=== PATIENT | male | born 1940 | race Caucasian/White ===

== ENCOUNTER 2018-09-15 06:42 | Emergency (ER) | payer OTHER ==
--- NOTE | 2018-09-15 07:01 | EDPHYS ---
Physician Documentation [facility] Name: Gumaro Marina Age: 77 yrs Sex: Male : 1940 Arrival Date: 09/15/2018 Time: 06:46 Bed 18 Private MD: Jean Paul Scott ED Physician Chong Motlye HPI: 09/15 06:58 This 77 yrs old Male presents to ER via Unassigned with complaints of Rash. kb 06:58 The patient's rash thought to be caused by allergies. The rash is located on the body kb diffusely. The rash can be described as macular, papular. Onset: The symptoms/episode began/occurred 3 day(s) ago. Associated signs and symptoms: Pertinent positives: itching, Pertinent negatives: burning sensation, difficulty breathing, fever, nausea, Pain swelling of lips, swelling of throat, swelling of tongue, vomiting, wheezing. Severity of symptoms: At their worst the symptoms were moderate in the emergency department the symptoms are unchanged. Treatment given at home: Benadryl. The patient has not experienced similar symptoms in the past. The patient has not recently seen a physician. Pt reports he drank oral contrast on Monday and developed an itchy rash over body after that. Has been taking benadryl, but it isn't working. Historical: - Allergies: 06:59 PENICILLINS; bb 06:59 Codeine; bb - Home Meds: 07:18 guanfacine 2 mg Oral tab [Active]; aspirin 81 mg Oral chew [Active]; melatonin 10 mg em Oral tab [Active]; finasteride 5 mg oral tab [Active]; lisinopril 5 mg Oral tab [Active]; - PMHx: 06:59 Hypertension; bb - PSHx: 06:59 Hernia repair; Knee surgery; bb - Immunization history:: Adult Immunizations up to date. - Social history:: Smoking status: Patient/guardian denies using tobacco. - Ebola Screening: : No symptoms or risks identified at this time. ROS: 06:59 Constitutional: Negative for fever, chills, and weight loss, ENT: Negative for injury, kb pain, and discharge, Neck: Negative for injury, pain, and swelling, Cardiovascular: Negative for chest pain, palpitations, and edema, Respiratory: Negative for shortness of breath, cough, wheezing, and pleuritic chest pain, Abdomen/GI: Negative for abdominal pain, nausea, vomiting, diarrhea, and constipation, MS/Extremity: Negative for injury and deformity, Neuro: Negative for headache, weakness, numbness, tingling, and seizure. 06:59 Skin: Positive for rash, diffusely. Exam: 06:59 Constitutional: This is a well developed, well nourished patient who is awake, alert, kb and in no acute distress. Head/Face: Normocephalic, atraumatic. Chest/axilla: Normal chest wall appearance and motion. Nontender with no deformity. No lesions are appreciated. Cardiovascular: Regular rate and rhythm with a normal S1 and S2. No gallops, murmurs, or rubs. Normal PMI, no JVD. No pulse deficits. Respiratory: Lungs have equal breath sounds bilaterally, clear to auscultation and percussion. No rales, rhonchi or wheezes noted. No increased work of breathing, no retractions or nasal flaring. Abdomen/GI: Soft, non-tender, with normal bowel sounds. No distension or tympany. No guarding or rebound. No evidence of tenderness throughout. MS/ Extremity: Pulses equal, no cyanosis. Neurovascular intact. Full, normal range of motion. Neuro: Awake and alert, GCS 15, oriented to person, place, time, and situation. Cranial nerves II-XII grossly intact. Motor strength 5/5 in all extremities. Sensory grossly intact. Cerebellar exam normal. Normal gait. 06:59 Skin: rash a mild rash is noted, rash can be described as macular, papular, and is diffusely located. Vital Signs: 06:59 BP 179 / 102; Pulse 72; Resp 16 S; Temp 97.6(O); Pulse Ox 99% on R/A; Weight 83.91 kg bb (R); Height 6 ft. 0 in. (182.88 cm) (R); 07:10 BP 169 / 96; Pulse 61; Resp 18; Pulse Ox 99% on R/A; em 06:59 Body Mass Index 25.09 (83.91 kg, 182.88 cm) bb MDM: 06:51 Patient medically screened. kb 07:00 Data reviewed: vital signs, nurses notes. Data interpreted: Pulse oximetry: on room air kb is 99 %. Interpretation: normal. Counseling: I had a detailed discussion with the patient and/or guardian regarding: the historical points, exam findings, and any diagnostic results supporting the discharge/admit diagnosis, the need for outpatient follow up, a accounting manager assistant controller, to return to the emergency department if symptoms worsen or persist or if there are any questions or concerns that arise at home. Administered Medications: 07:10 Drug: predniSONE 40 mg Route: PO; em 07:15 Follow up: Response: Medication administered at discharge. em 07:10 Drug: Pepcid 20 mg Route: PO; em 07:15 Follow up: Response: Pain is unchanged, physician notified em Disposition: 09/15/18 07:01 Discharged to Home. Impression: Rash and other nonspecific skin eruption. - Condition is Stable. - Discharge Instructions: Rash, [id number], Allergies, [id number]. - Prescriptions for Pepcid 20 mg Oral Tablet - take 1 tablet by ORAL route every 12 hours for 5 days; 10 tablet. Prednisone 20 mg Oral Tablet - take 1 tablet by ORAL route once daily for 5 days; 5 tablet. - Medication Reconciliation Form, Thank You Letter, Antibiotic Education, Prescription Opioid Use form. - Follow up: Emergency Department; When: As needed; Reason: Worsening of condition. Follow up: Private Physician; When: 2 - 3 days; Reason: Recheck today's complaints, Continuance of care, Re-evaluation by your physician. Addendum: 09/19/2018 06:57 Co-signature as Attending Physician, Chong Motley MD. g s Signatures: Yenifer Kuo, EDMAR-C WILDLIFE BIOLOGIST-Jigarb Huey Asencio, HEALTH SAFETY ENGINEER HEALTH SAFETY ENGINEER Lili Dobbins RN RN bb Starr, Gregory, MD MD Corrections: (The following items were deleted from the chart) 09/15 07:19 07:01 09/15/2018 07:01 Discharged to Home. Impression: Rash and other nonspecific skin em eruption. Condition is Stable. Forms are Medication Reconciliation Form, Thank You Letter, Antibiotic Education, Prescription Opioid Use. Follow up: Emergency Department; When: As needed; Reason: Worsening of condition. Follow up: Private Physician; When: 2 - 3 days; Reason: Recheck today's complaints, Continuance of care, Re-evaluation by your physician. kb
--- NOTE | 2018-09-15 07:01 | ER ---
Nurse's Notes [facility] Name: Gumaro Marina Age: 77 yrs Sex: Male : 1940 Arrival Date: 09/15/2018 Time: 06:46 Bed 18 Private MD: Jean Paul Scott Diagnosis: Rash and other nonspecific skin eruption Presentation: 09/15 06:57 Presenting complaint: Patient states: he has an itchy rash all over which seems to be bb spreading the rash started Monday evening or after he drank oral contrast for CT pt has been taking Benadryl but rash is worsening pt is also treating mites with a topical medication. Transition of care: patient was not received from another setting of care. Onset of symptoms was September 12, 2018. Risk Assessment: Do you want to hurt yourself or someone else? Patient reports no desire to harm self or others. Initial Sepsis Screen: Does the patient meet any 2 criteria? No. Patient's initial sepsis screen is negative. Does the patient have a suspected source of infection? No. Patient's initial sepsis screen is negative. Care prior to arrival: None. 06:57 Method Of Arrival: Ambulatory bb 06:57 Acuity: SINGH 5 bb Historical: - Allergies: 06:59 PENICILLINS; bb 06:59 Codeine; bb - Home Meds: 07:18 guanfacine 2 mg Oral tab [Active]; aspirin 81 mg Oral chew [Active]; melatonin 10 mg em Oral tab [Active]; finasteride 5 mg oral tab [Active]; lisinopril 5 mg Oral tab [Active]; - PMHx: 06:59 Hypertension; bb - PSHx: 06:59 Hernia repair; Knee surgery; bb - Immunization history:: Adult Immunizations up to date. - Social history:: Smoking status: Patient/guardian denies using tobacco. - Ebola Screening: : No symptoms or risks identified at this time. Screenin:10 Abuse screen: Denies threats or abuse. Nutritional screening: No deficits noted. em Tuberculosis screening: No symptoms or risk factors identified. Fall Risk None identified. Assessment: 07:10 General: Appears in no apparent distress. comfortable, Behavior is calm, cooperative, em Denies fever. Pain: Denies pain. Neuro: Level of Consciousness is awake, alert, obeys commands, Oriented to person, place, time, situation. Cardiovascular: Capillary refill < 3 seconds Patient's skin is warm and dry. Respiratory: Airway is patent Respiratory effort is even, unlabored, Respiratory pattern is regular, symmetrical. GI: Abdomen is flat. Derm: Skin is intact, is healthy with good turgor, Skin is pink, warm \T\ dry. Rash noted that is itchy, on back, right arm, left arm, right leg and left leg Reports itching. Musculoskeletal: Range of motion: intact in all extremities. Vital Signs: 06:59 BP 179 / 102; Pulse 72; Resp 16 S; Temp 97.6(O); Pulse Ox 99% on R/A; Weight 83.91 kg bb (R); Height 6 ft. 0 in. (182.88 cm) (R); 07:10 BP 169 / 96; Pulse 61; Resp 18; Pulse Ox 99% on R/A; em 06:59 Body Mass Index 25.09 (83.91 kg, 182.88 cm) bb ED Course: 06:46 Patient arrived in ED. es 06:46 Jean Paul Scott MD is Private Physician. es 06:50 Yenifer Kuo FNP-C [facility]. kb 06:50 Chong Motley MD is Attending Physician. kb 06:58 Triage completed. bb 06:59 Arm band placed on Patient placed in an exam room, on a stretcher, on pulse oximetry. bb 07:02 Huey Asencio LVN is Primary Nurse. em 07:10 Patient has correct armband on for positive identification. Placed in gown. Bed in low em position. Call light in reach. Pulse ox on. NIBP on. 07:13 No provider procedures requiring assistance completed. Patient did not have IV access em during this emergency room visit. Administered Medications: 07:10 Drug: predniSONE 40 mg Route: PO; em 07:15 Follow up: Response: Medication administered at discharge. em 07:10 Drug: Pepcid 20 mg Route: PO; em 07:15 Follow up: Response: Pain is unchanged, physician notified em Outcome: 07:01 Discharge ordered by . kb 07:16 Discharged to home ambulatory. em 07:16 Condition: good 07:16 Discharge instructions given to patient, Instructed on discharge instructions, follow up and referral plans. medication usage, Demonstrated understanding of instructions, follow-up care, medications, Prescriptions given X 2. 07:19 Patient left the ED. em Addendum: 09/16/2018 19:14 Addendum: Other The previous general assessment is accurate. Call light remains within s s reach. Signatures: Yenifer Kuo, POWER LINEMAN-C POWER LINEMAN-Ckb Melissa Toro Edgar, DRAMA DIRECTOR DRAMA DIRECTOR em Lili Dobbins, RN RN Kristin Ruffin RN RN ss
[2018-09-15] MEDS ORDERED: FAMOTIDINE 20 MG TAB ONE (07:17)
[2018-09-15] MEDS ORDERED: predniSONE 20 MG TAB ONE (07:17)
[2018-09-15 07:24] VITALS: TEMP 97.6; O2SAT 99
[2018-09-15 07:25] VITALS: BP 169/96
== END 2018-09-15 07:19 | disposition home or self-care (01) ==
LOC: ER 06:42
DX: R21 Rash and other nonspecific skin eruption (principal); I10 Essential (primary) hypertension; Z88.0 Allergy status to penicillin; Z88.5 Allergy status to narcotic agent
CPT/HCPCS: 99283; J7512

== ENCOUNTER 2018-09-26 07:54 | Day surgery (SDC) | payer OTHER ==
--- NOTE | 2018-09-25 16:37 | RAD REPORT ---
EXAM DESCRIPTION: Ricky No (2 Views)09/25/2018 4:26 pm CLINICAL HISTORY: Abdominal pain/preop COMPARISON: 2012 FINDINGS: The lungs appear clear of acute infiltrate. The heart is upper limits normal size IMPRESSION: No acute abnormalities displayed
[2018-09-25 16:42] LABS: Absolute Lymphocytes (CBC) 2.9 K/uL (0.7-4.9); Absolute Monocytes 0.7 K/uL (0.1-1.3); Absolute Neutrophil 3.9 K/uL (1.8-8.0); Basophils % 0.4 % (0-1.3); Eosinophils % 3.9 % (0-4.4); Hematocrit 42.4 % (39.6-49.0); Lymphocytes % 37.5 % (15.3-44.8); MPV 8.5 fL (7.6-11.3); Monocytes % 8.4 % (3.3-12.3); RBC Red Blood Cell Count 4.61 M/uL (4.33-5.43)
[2018-09-25 16:58] LABS: Potassium 4.4 mmol/L (3.5-5.1)
--- NOTE | 2018-09-26 07:45 | EKG ---
Test Date: 2018-09-25 Test Time: 15:55:15 Support Associate: LORA MEASUREMENT RESULTS: Intervals: Rate: 61 NJ: 188 QRSD: 86 QT: 418 QTc: 420 [place]: P: 52 NJ: 188 QRS: -17 T: 33 INTERPRETIVE STATEMENTS: Normal sinus rhythm Normal ECG Compared to ECG 09/29/2016 15:02:51 No significant changes Electronically Signed On 09-26-18 07:44:51 CDT by Tito Richards
[2018-09-26] MEDS ORDERED: PROPOFOL 200 MG/20 ML VIAL IV ONE (08:05)
[2018-09-26] MEDS ORDERED: FENTANYL CITR 100 MCG/2 ML ONE ×2 (08:06→10:01)
[2018-09-26] MEDS ORDERED: MIDAZOLAM HCL 2 MG/2 ML INJ ONE (08:06)
[2018-09-26] MEDS ORDERED: LIDOCAINE 1% MPF 5 ML VIAL ONE (08:06)
[2018-09-26] MEDS ORDERED: Ringers Lactate 1,000 ML IV ONE (08:19)
[2018-09-26] MEDS ORDERED: HYDRALAZINE HCL 20 MG/ML VIAL ONE (08:44)
[2018-09-26] MEDS ORDERED: BUPIVACAINE 0.5% PF 10 ML VIAL ONE (08:48)
[2018-09-26] MEDS ORDERED: CEFAZOLIN/SWI 1gm 1 GM/10 ML SYR ONE (09:04)
[2018-09-26] MEDS ORDERED: ONDANSETRON 4 MG/2 ML VIAL ONE (09:56)
[2018-09-26] MEDS ORDERED: TRAMADOL 37.5mg/APAP 325mg PER TAB ONE (11:17)
[2018-09-26 11:35] VITALS: TEMP 97.4
[2018-09-26 12:08] VITALS: BP 129/71; O2SAT 98
--- NOTE | 2018-09-26 19:35 | DS ---
Date of Discharge: 09/26/2018 Discharge Note: The patient will go to Day Surgery and home when stable. Disposition: Home. Condition: Stable. Discharge Instructions: Resume home medications and diet. Activity as tolerated. No heavy lifting. Remove outer dressing in 2 days. Shower. Keep the wound clean and dry. Ultracet 1 tablet p.o. q. 4 p.r.n. pain. Follow up in my office in 1 week. Call for appointment. Ice pack and scrotal suppor tLinda WEIR/DELVIN Voice ID: [id number] Report ID: [id number]
--- NOTE | 2018-09-26 19:35 | OP ---
Date of Procedure: 09/26/2018 Surgeon: Dylan Arana MD Preoperative Diagnosis: Recurrent right inguinal hernia. Postoperative Diagnosis: Recurrent right inguinal hernia. Procedure: Repair of recurrent right inguinal hernia. Estimated Blood Loss: Minimal. Specimen: Hernia sac. Findings: As above. Anesthesia: General. Complications: None. Disposition: The patient tolerated the procedure in stable condition and taken to Recovery in good g eneral condition. Procedure In Detail: The patient was brought to the OR and placed in supine position. General anest hesia begun. The patient was prepped and draped in usual sterile fashion. Marcaine 0.5% was infiltr ated in a field block fashion in the right groin. A 15-blade was used to make a 4 cm oblique incisio n between the pubic tubercle and the anterior iliac superior spine. Subcutaneous tissue was divided. Jackie fascia was identified and divided. Aponeurosis was identified and mobilized and then the co rd structures were identified. The aponeurosis was very attenuated and then cord structures were ske letonized, and medially there was a recurrent hernia sac present. Hernia sac was identified and free d from the cord structures with sharp and blunt dissection. High ligation with 2-0 Prolene suture li gature was done, and then the hernia sac was sent to Pathology. Then, Marlex mesh plug was placed ov er the hernia sac and the internal ring and secured with VersaTack stapler. An Onlay mesh was then p laced over the abdomen, secured medially to the pubic tubercle, superiorly to the conjoint tendon, in feriorly to the shelving edge, and laterally to each other. Then the cord structures and ilioinguina l nerve were placed back in anatomical location, and then 3-0 chromic was used to reapproximate the S carpa fascia. [place] were used to close the skin. Sterile dressing was applied. The patient awake anat, taken to Recovery in good general condition. /MODL Voice ID: [id number] Report ID: [id number]
== END 2018-09-26 12:16 | disposition home or self-care (01) ==
LOC: OR 07:54
PROVIDERS: ATTEND Surgery
PROC: 0YU50JZ Supplement Right Inguinal Region with Synthetic Substitute, Open Approach (ICD-10-PCS; principal; 2018-09-26 09:15)
DX: K40.91 Unilateral inguinal hernia, without obstruction or gangrene, recurrent (principal); Z79.82 Long term (current) use of aspirin; Z79.899 Other long term (current) drug therapy
CPT/HCPCS: 49520; 88302; 82962; 93005; 85025; 80048; 36415; 71046; J0360; J2704; J2250; J3010 ×2; J0690; J2405

== ENCOUNTER 2019-10-20 00:02 | Observation (INO) | payer OTHER ==
--- OUTSIDE RECORDS SUMMARY | 2019-10-20 00:05 | XMS REPORT ---
:1940 Author Organization [employer] Care Team Providers Name Role Phone Liz, Na Provider Role Unavailable Allergies, Adverse Reactions, Alerts Substance Reaction Event Type PCN Info Not Available Drug Allergy Potassium rash Drug Allergy Lisinopril rash Drug Allergy Problems Problem Type Condition Code Onset Dates Condition Statu s Problem Allergic reaction, initial T78.40XA A ctive encounter Problem Elevated blood pressure reading in I10 Active office with diagnosis of hypertension Problem Insect stings, undetermined T63.484A Active intent, initial encounter Problem Hypothyroidism (acquired) E03.9 Ac tive Problem Polycystic kidney disease Q61.3 Ac tive Problem Vitamin D deficiency E55.9 Active Problem Multiple episodes of hypoglycemia E16.2 Active Problem CKD (chronic kidney disease), N18.3 Active stage III Problem Pure hypercholesterolemia E78.00 Ac tive Problem Essential tremor G25.0 Active Assessment Vitamin D deficiency E55.9 Active Assessment Essential tremor G25.0 Active Assessment Screening for prostate cancer Z12.5 Active Assessment Multiple episodes of hypoglycemia E16.2 Active Assessment CKD (chronic kidney disease), N18.3 Active stage III Assessment Polycystic kidney disease Q61.3 Ac tive Assessment Elevated blood pressure reading in I10 Active office with diagnosis of hypertension Assessment Pure hypercholesterolemia E78.00 Ac tive Medications Medication Code Code Instructions Start End Status Dosage System Date HydrALAZINE HCl ND 65073604567 50 MG Orally Active 1 tablet with Three times a food day Guanfacine HCl [facility] [address]-29 Active not defined Levothyroxine ND 05266662975 50 MCG Orally September Active 1 tablet in Sodium Once a day , the morning 2019 on an empty stomach Guanfacine HCl ND 31248737409 1 MG Orally Aug 14, Active 1 tablet at Once a day 2020 bedtime Amlodipine NDC 0 Inactive not defined Besylate Losartan ND 24422243277 25 MG Orally Active 1/2 ta blet Potassium Once a day dailyfor hypertension Aspir-81 [facility] 15491376171 81 MG Orally Active 1 tabl et Once a day Finasteride [facility] 85261878820 5 MG Orally Active 1 ta blet Once a day Guanfacine HCl [facility] 24253913126 2 MG Orally Aug 14, Active 1 tablet at Once a day [address] [facility] [address]-04 Inactive not de fined Carvedilol [facility] 40331196825 3.125 MG Active as direc caroline Orally twice a day Results No Known Results Summary Purpose eClinicalWorks Submission
[2019-10-20 00:37] LABS: Absolute Lymphocytes (CBC) 1.7 K/uL (0.7-4.9); Basophils % 0.2 % (0-1.3); Hematocrit 37.9 % (39.6-49.0); Lymphocytes % 15.2 % (15.3-44.8); MPV 8.4 fL (7.6-11.3); RBC Red Blood Cell Count 4.12 M/uL (4.33-5.43)
[2019-10-20 00:38] LABS: Protime INR 0.89
[2019-10-20 00:56] LABS: ALT/SGPT 15 U/L (12-78); AST/SGOT 13 U/L (15-37); Albumin 3.6 g/dL (3.4-5.0); Alkaline Phosphatase 43 U/L (45-117); BUN Blood Urea Nitrogen 29 mg/dL (7-18); Bicarbonate 23 mmol/L (21-32); Bilirubin Direct < 0.1 mg/dL (0-0.2); Bilirubin Total 0.2 mg/dL (0.2-1.0); Glucose Level 117 mg/dL (74-106); Lipase 239 U/L (73-393); Magnesium 2.3 mg/dL (1.8-2.4); NT PRO-BNP 406 pg/mL (<450); Potassium 3.9 mmol/L (3.5-5.1); Protein, Total 7.3 g/dL (6.4-8.2); Sodium Level 144 mmol/L (136-145); Troponin (Emerg Dept Use Only) < 0.02 ng/mL (0.0-0.045)
[2019-10-20 01:20] LABS: Urine Blood NEGATIVE (NEG); Urine Glucose NEGATIVE (NEG); Urine Protein 2+ (NEG); Urine Specific Gravity 1.025 (1.005-1.030); Urine pH 5.5 (5.0-7.0)
--- NOTE | 2019-10-20 03:20 | ER ---
Nurse's Notes [facility] Name: Gumaro Marina Age: 78 yrs Sex: Male : 1940 Arrival Date: 10/20/2019 Time: 00:05 Bed 18 Private MD: Diagnosis: Hypoglycemia, unspecified;Dizziness and giddiness;Unspecified kidney failure;Bradycardia, unspecified;Abdominal tenderness;Diverticular disease of intestine Presentation: 10/19 00:05 Chief complaint: EMS states: family called for low blood sugar, reading in the 40's, EMS states that FSBG was 45 upon arrival post 3 tabs of glucose. Coronavirus screen: Proceed with normal triage. Ebola Screen: Patient negative for fever greater than or equal to 101.5 degrees Fahrenheit, and additional compatible Ebola Virus Disease symptoms Patient denies exposure to infectious person. Patient denies travel to an Ebola-affected area in the 21 days before illness onset. No symptoms or risks identified at this time. Initial Sepsis Screen: Does the patient meet any 2 criteria? No. Patient's initial sepsis screen is negative. Does the patient have a suspected source of infection? No. Patient's initial sepsis screen is negative. Risk Assessment: Do you want to hurt yourself or someone else? Patient reports no desire to harm self or others. Onset of symptoms was October 20, 2019. Care prior to arrival: IV initiated. 20 GA, in the left antecubital area, Glucose check: 45 adminsitered D10 and NS, repeat FSBG was 75. 00:05 Method Of Arrival: EMS: [facility] sg 00:05 Acuity: SINGH 3 sg Historical: - Allergies: 00:09 Codeine; sg 00:09 PENICILLINS; sg 00:33 barium sulfate; sg - Home Meds: 00:09 aspirin 81 mg Oral chew [Active]; finasteride 5 mg Oral tab [Active]; guanfacine 2 mg sg Oral tab [Active]; lisinopril 5 mg Oral tab [Active]; melatonin 10 mg Oral tab [Active]; - PMHx: 00:09 Hypertension; sg - PSHx: 00:09 Hernia repair; Knee surgery; sg - Immunization history:: Adult Immunizations not up to date. - Social history:: Smoking status: Patient denies any tobacco usage or history of. - Family history:: not pertinent. Screenin:30 Abuse screen: Denies threats or abuse. Denies injuries from another. Nutritional sg screening: No deficits noted. Tuberculosis screening: No symptoms or risk factors identified. Never had TB. Fall Risk None identified. Assessment: 00:30 General: Appears in no apparent distress. well groomed, well developed, well nourished, sg Behavior is calm, cooperative, appropriate for age. Pain: Denies pain. Neuro: Level of Consciousness is awake, alert, obeys commands, Oriented to person, place, time, situation, Manager Social are equal bilaterally Speech is normal, Facial symmetry appears normal. Cardiovascular: Patient's skin is warm and dry. Chest pain is denied. Respiratory: Airway is patent Respiratory effort is even, unlabored, Respiratory pattern is regular, symmetrical. GI: Abdomen is round non-distended. : No signs and/or symptoms were reported regarding the genitourinary system. EENT: No signs and/or symptoms were reported regarding the EENT system. Derm: Skin is pink, warm \T\ dry. Musculoskeletal: Circulation, motion, and sensation intact. Range of motion: intact in all extremities. 01:00 Reassessment: Patient is alert, oriented x 3, equal unlabored respirations, skin sg warm/dry/pink. CT notified pt finished drinking PO contrast at this time. 03:26 Reassessment: Patient appears in no apparent distress at this time. Patient is alert, sg oriented x 3, equal unlabored respirations, skin warm/dry/pink. awaiting a bed for admission at this time, will continue to monitor. Vital Signs: 00:09 BP 156 / 83; Pulse 55; Resp 18; Temp 97.7; Pulse Ox 100% on R/A; Weight 81.65 kg; sg 01:00 BP 152 / 84; Pulse 50; Resp 18; Pulse Ox 96% on R/A; sg 02:00 BP 139 / 79; Pulse 48; Resp 18; Pulse Ox 98% on R/A; sg 02:59 BP 147 / 85; Pulse 50 MON; Resp 19 S; Pulse Ox 98% on R/A; sg 03:50 BP 138 / 76; Pulse 52; Resp 19; Pulse Ox 98% on R/A; sg ED Course: 00:05 Patient arrived in ED. sg 00:05 Yusuf Strange MD is Attending Physician. alfonso 00:05 Arm band placed on. sg 00:07 Triage completed. sg 00:15 Patient has correct armband on for positive identification. Bed in low position. Call sg light in reach. Side rails up X2. desk monitor on. Pulse ox on. NIBP on. Warm blanket given. Head of bed elevated. 00:25 Initial lab(s) drawn, by me, sent to lab. Maintain EMS IV. Dressing intact. Good blood sg return noted. Site clean \T\ dry. Gauge \T\ site: 18 g rac. IV is patent, is intact, with fluids infusing freely, with good blood return. 00:30 Leo Lares RN is Primary Nurse. sg 00:38 EKG done, by ED staff, reviewed by Yusuf Strange MD. sg 00:47 XRAY Chest (1 view) In Process Unspecified. EDMS 02:39 Abdomen In Process Unspecified. EDMS 03:19 Valeria Paz MD is Hospitalizing Provider. alfonso 03:28 Gordon Laird MD is Hospitalizing Provider. alfonso 03:54 No provider procedures requiring assistance completed. Patient admitted, IV remains in sg place. intact, No redness/swelling at site. Administered Medications: 00:31 Drug: NS 0.9% 500 ml Route: IV; Rate: bolus; Site: right antecubital; sg 01:31 Drug: NS 0.9% 1000 ml Route: IV; Rate: 125 ml/hr; Site: right antecubital; sg Point of Care Testing: Blood Glucose: 00:09 Blood Glucose: 113 mg/dL; sg Ranges: Outcome: 03:20 Decision to Hospitalize by Provider. alfonso 03:53 Admitted to Med/surg accompanied by tech, via wheelchair, room 206, with chart, Report sg called to CURT Trevino for room 206 03:53 Condition: stable 03:53 Instructed on the need for admit, safety practices, Demonstrated understanding of instructions, follow-up care. 04:48 Patient left the ED. mw2 Signatures: Dispatcher [employer] Leo Mcnair, Yusuf Garcia RN, MD MD cha [place], MyKena mw2 Corrections: (The following items were deleted from the chart) 02:59 01:00 BP 139 / 79; Pulse 48bpm; Resp 18bpm; Pulse Ox 98% RA; sg sg
--- NOTE | 2019-10-20 03:20 | EDPHYS ---
Physician Documentation [facility] Name: Gumaro Marina Age: 78 yrs Sex: Male : 1940 Arrival Date: 10/20/2019 Time: 00:05 Bed 18 Private MD: ED Physician Yusuf Strange HPI: 10/19 00:17 This 78 yrs old Male presents to ER via EMS with complaints of Low Blood alfonso Sugar. 00:17 The patient or guardian reports hypoglycemia, that was potentially precipitated by abd alfonso pain. Onset: The symptoms/episode began/occurred just prior to arrival, this morning. Associated signs and symptoms: Pertinent positives: constipation, nausea. Current symptoms: In the emergency department the patient's symptoms have improved, moderately. The patient has experienced similar episodes in the past, a few times. Historical: - Allergies: 00:09 Codeine; sg 00:09 PENICILLINS; sg 00:33 barium sulfate; sg - Home Meds: 00:09 aspirin 81 mg Oral chew [Active]; finasteride 5 mg Oral tab [Active]; guanfacine 2 mg sg Oral tab [Active]; lisinopril 5 mg Oral tab [Active]; melatonin 10 mg Oral tab [Active]; - PMHx: 00:09 Hypertension; sg - PSHx: 00:09 Hernia repair; Knee surgery; sg - Immunization history:: Adult Immunizations not up to date. - Social history:: Smoking status: Patient denies any tobacco usage or history of. - Family history:: not pertinent. ROS: 00:17 Constitutional: Negative for fever, chills, and weight loss, Eyes: Negative for injury, alfonso pain, redness, and discharge, ENT: Negative for injury, pain, and discharge, Neck: Negative for injury, pain, and swelling, Cardiovascular: Negative for chest pain, palpitations, and edema, Respiratory: Negative for shortness of breath, cough, wheezing, and pleuritic chest pain, Back: Negative for injury and pain, : Negative for injury, bleeding, discharge, and swelling, MS/Extremity: Negative for injury and deformity, Skin: Negative for injury, rash, and discoloration, Psych: Negative for depression, anxiety, suicide ideation, homicidal ideation, and hallucinations, Allergy/Immunology: Negative for hives, rash, and allergies, Endocrine: Negative for neck swelling, polydipsia, polyuria, polyphagia, and marked weight changes, Hematologic/Lymphatic: Negative for swollen nodes, abnormal bleeding, and unusual bruising. 00:17 Abdomen/GI: Positive for nausea, abdominal distension. Exam: 00:17 Constitutional: This is a well developed, well nourished patient who is awake, alert, alfonso and in no acute distress. Head/Face: Normocephalic, atraumatic. Eyes: Pupils equal round and reactive to light, extra-ocular motions intact. Lids and lashes normal. Conjunctiva and sclera are non-icteric and not injected. Cornea within normal limits. Periorbital areas with no swelling, redness, or edema. ENT: Nares patent. No nasal discharge, no septal abnormalities noted. Tympanic membranes are normal and external auditory canals are clear. Oropharynx with no redness, swelling, or masses, exudates, or evidence of obstruction, uvula midline. Mucous membranes moist. Neck: Trachea midline, no thyromegaly or masses palpated, and no cervical lymphadenopathy. Supple, full range of motion without nuchal rigidity, or vertebral point tenderness. No Meningismus. Chest/axilla: Normal chest wall appearance and motion. Nontender with no deformity. No lesions are appreciated. Cardiovascular: Regular rate and rhythm with a normal S1 and S2. No gallops, murmurs, or rubs. Normal PMI, no JVD. No pulse deficits. Respiratory: Lungs have equal breath sounds bilaterally, clear to auscultation and percussion. No rales, rhonchi or wheezes noted. No increased work of breathing, no retractions or nasal flaring. Back: No spinal tenderness. No costovertebral tenderness. Full range of motion. Male : Normal genitalia with no discharge or lesions. Skin: Warm, dry with normal turgor. Normal color with no rashes, no lesions, and no evidence of cellulitis. MS/ Extremity: Pulses equal, no cyanosis. Neurovascular intact. Full, normal range of motion. Neuro: Awake and alert, GCS 15, oriented to person, place, time, and situation. Cranial nerves II-XII grossly intact. Motor strength 5/5 in all extremities. Sensory grossly intact. Cerebellar exam normal. Normal gait. Psych: Awake, alert, with orientation to person, place and time. Behavior, mood, and affect are within normal limits. 00:17 Abdomen/GI: Inspection: distension, Bowel sounds: hyperactive, Palpation: mild abdominal tenderness, in all quadrants, Liver: no appreciated palpable abnormalities, Hernia: not appreciated. Vital Signs: 00:09 BP 156 / 83; Pulse 55; Resp 18; Temp 97.7; Pulse Ox 100% on R/A; Weight 81.65 kg; sg 01:00 BP 152 / 84; Pulse 50; Resp 18; Pulse Ox 96% on R/A; sg 02:00 BP 139 / 79; Pulse 48; Resp 18; Pulse Ox 98% on R/A; sg 02:59 BP 147 / 85; Pulse 50 MON; Resp 19 S; Pulse Ox 98% on R/A; sg 03:50 BP 138 / 76; Pulse 52; Resp 19; Pulse Ox 98% on R/A; sg MDM: 00:05 Patient medically screened. [facility] 00:19 Data reviewed: vital signs, nurses notes, lab test result(s), EKG, radiologic studies, [facility] CT scan, plain films. 04 00:15 Order name: Basic Metabolic Panel [facility] 10/19 00:15 Order name: CBC with Diff [facility] 10/19 00:15 Order name: LFT's; Complete Time: 01:17 [facility] 10/19 00:15 Order name: Magnesium; Complete Time: 01:17 [facility] 10/19 00:15 Order name: NT PRO-BNP; Complete Time: 01:17 [facility] 10/19 00:15 Order name: PT-INR; Complete Time: 01:17 [facility] 10/19 00:15 Order name: Troponin (emerg Dept Use Only); Complete Time: 01:17 [facility] 10/19 00:15 Order name: Lipase; Complete Time: 01:17 [facility] 10/19 00:15 Order name: Urine Culture [facility] 10/19 00:16 Order name: Basic Metabolic Panel; Complete Time: 01:17 EDVT 10/19 00:16 Order name: CBC with Automated Diff; Complete Time: 01:17 ED[facility] 10/19 00:21 Order name: Glucose, Ancillary Testing; Complete Time: 01:17 EDMS 10/19 01:06 Order name: Urine Dipstick--Ancillary (enter results); Complete Time: 01:34 mw2 10/19 00:15 Order name: XRAY Chest (1 view) [facility] 10/19 00:15 Order name: EKG; Complete Time: 00:16 [facility] 10/19 02:16 Order name: Abdomen EDVT 10/19 03:43 Order name: CONS Pharmacy Consult [facility] 10/19 03:43 Order name: Heart Healthy [facility] 10/19 03:43 Order name: CBC with Automated Diff EDVT 10/19 03:43 Order name: Comprehensive Metabolic Panel [facility] 10/19 03:48 Order name: C-Peptide [facility] 10/19 03:48 Order name: Insulin [facility] 10/19 03:48 Order name: Thyroid Stimulating Hormone [facility] 10/19 03:49 Order name: Cortisol [facility] 10/19 03:50 Order name: Basic Metabolic Panel [facility] 10/19 04:19 Order name: TSH [facility] 10/19 00:15 Order name: Cardiac monitoring; Complete Time: 00:17 [facility] 10/19 00:15 Order name: EKG - Nurse/Tech; Complete Time: 01:44 [facility] 10/19 00:15 Order name: IV Saline Lock; Complete Time: 00:17 [facility] 10/19 00:15 Order name: Labs collected and sent; Complete Time: 00:17 [facility] 10/19 00:15 Order name: O2 Per Protocol; Complete Time: 00:17 [facility] 10/19 00:15 Order name: O2 Sat Monitoring; Complete Time: 00:17 [facility] 10/19 00:15 Order name: Urine Dipstick-Ancillary (obtain specimen); Complete Time: 01:32 [facility] 10/19 00:15 Order name: Blood Glucose Level; Complete Time: 00:31 [facility] Administered Medications: 00:31 Drug: NS 0.9% 500 ml Route: IV; Rate: bolus; Site: right antecubital; sg 01:31 Drug: NS 0.9% 1000 ml Route: IV; Rate: 125 ml/hr; Site: right antecubital; sg Point of Care Testing: Blood Glucose: 00:09 Blood Glucose: 113 mg/dL; sg Ranges: Critical Glucose Levels:Adult <50 mg/dl or >400 mg/dl <40 mg/dl or >180 mg/dl Disposition: 10/20/19 03:20 Hospitalization ordered by Gordon Laird for Observation. Preliminary diagnosis are Hypoglycemia, unspecified, Dizziness and giddiness, Unspecified kidney failure, Bradycardia, unspecified, Abdominal tenderness, Diverticular disease of intestine. - Bed requested for Telemetry/MedSurg (observation). - Status is Observation. mw2 - Condition is Stable. - Problem is new. - Symptoms have improved. Signatures: Dispatcher [employer] EDVT Leo Lares, Yusuf Garcia RN, MD MD cha Pena, Laura RN RN lp1 Cindy Lebron mw2 Corrections: (The following items were deleted from the chart) 02:16 00:16 Abdomen Pelvis W Con+CT.RAD.BRZ ordered. [facility] EDVT 03:20 03:20 Hospitalization Ordered by Valeria Paz MD for Observation. Preliminary alfonso diagnosis is Hypoglycemia, unspecified; Dizziness and giddiness; Unspecified kidney failure; Bradycardia, unspecified; Abdominal tenderness. Bed requested for Telemetry/MedSurg (observation). Status is Observation. Condition is Stable. Problem is new. Symptoms have improved. [facility] 03:28 03:20 10/20/2019 03:20 Hospitalization Ordered by Valeria Paz MD for Observation. alfonso Preliminary diagnosis is Hypoglycemia, unspecified; Dizziness and giddiness; Unspecified kidney failure; Bradycardia, unspecified; Abdominal tenderness; Diverticular disease of intestine. Bed requested for Telemetry/MedSurg (observation). Status is Observation. Condition is Stable. Problem is new. Symptoms have improved. [facility] 03:31 03:28 10/20/2019 03:20 Hospitalization Ordered by Gordon Laird MD for Observation. lp1 Preliminary diagnosis is Hypoglycemia, unspecified; Dizziness and giddiness; Unspecified kidney failure; Bradycardia, unspecified; Abdominal tenderness; Diverticular disease of intestine. Bed requested for Telemetry/MedSurg (observation). Status is Observation. Condition is Stable. Problem is new. Symptoms have improved. [facility] 03:49 03:43 Cortisol ordered. [facility] EDMS 04:48 03:31 10/20/2019 03:20 Hospitalization Ordered by Gordon Laird MD for Observation. mw2 Preliminary diagnosis is Hypoglycemia, unspecified; Dizziness and giddiness; Unspecified kidney failure; Bradycardia, unspecified; Abdominal tenderness; Diverticular disease of intestine. Bed requested for Telemetry/MedSurg (observation). Status is Observation. Condition is Stable. Problem is new. Symptoms have improved. lp1
[2019-10-20] MEDS ORDERED: D5W 1,000 ML IV SCH (04:00)
[2019-10-20 05:39] VITALS: BMI 25.2
--- NOTE | 2019-10-20 09:24 | P.HP ---
Certification for Inpatient Patient admitted to: Observation With expected LOS: <2 Midnights Practitioner: I am a practitioner with admitting privileges, knowledge of patient current condition, hospital course, and medical plan of care. Services: Services provided to patient in accordance with Admission requirements found in Title 42 Section 412.3 of the Code of Federal Regulations Patient History Date of Service: 10/20/19 (Hospitalist) Reason for admission: Hypoglycemia History of Present Illness: Patient is 78 years of age has symptoms of hypoglycemia MB dizziness diaphoresis wound in the sugars in the 40s denies any other complaints last episode of hypoglycemia was a month and a half ago seen by his primary care physician currently this happened after his hernia surgery he is feeling fine now daughter diabetic Allergies barium sulfate Allergy (Verified 10/20/19 05:18) unknown lisinopril Allergy (Verified 10/20/19 05:18) Hives/Rash Penicillins Allergy (Verified 10/20/19 05:18) Unknown codeine Adverse Reaction (Verified 10/20/19 05:18) dizziness Home Medications: Aspirin [Aspirin EC 81 MG] 81 mg PO DAILY 09/29/16 Guanfacine HCl [Guanfacine HCl ER] 2 mg PO BEDTIME 09/29/16 Finasteride [Proscar] 5 mg PO DAILY 09/25/18 Carvedilol [Coreg] 3.125 mg PO BID 10/20/19 Cholecalciferol (Vitamin D3) [Vitamin D3] 50 mcg PO DAILY 10/20/19 Hydralazine HCl 50 mg PO BID 10/20/19 Levothyroxine Sodium 50 mcg PO SEECOM 10/20/19 Losartan Potassium 0.5 tab PO DAILY 10/20/19 - Past Medical/Surgical History Has patient received pneumonia vaccine in the past: No Diabetic: No -: HTN -: Hypoglycemia -: lucie inquinal hernias 2001 -: hiatal hernia 2011 -: knee surgery - Family History Father -: Heart disease, Hypertension - Social History Smoking Status: Never smoker Alcohol use: No CD- Drugs: No Caffeine use: No Place of Residence: Home Review of Systems 10-point ROS is otherwise unremarkable Physical Examination - Vital Signs Temperature: 97.7 F Blood Pressure: 159/72 Pulse: 53 Respirations: 17 Pulse Ox (%): 97 - Physical Exam General: Alert, In no apparent distress, Oriented x3 Neck: Supple Respiratory: Clear to auscultation bilaterally Cardiovascular: No edema, Regular rate/rhythm Gastrointestinal: Normal bowel sounds, Soft and benign Musculoskeletal: No clubbing Integumentary: No rashes Neurological: Normal gait, Normal speech, Normal strength at 5/5 x4 extr - Studies Laboratory Data (last 24 hrs) 10/20/19 00:29: PT 10.5, INR 0.89 10/20/19 00:29: WBC 10.9, Hgb 12.5 L, Hct 37.9 L, Plt Count 149 L 10/20/19 00:29: Sodium 144, Potassium 3.9, BUN 29 H, Creatinine 2.09 H, Glucose 117 H, Magnesium 2.3, Total Bilirubin 0.2, AST 13 L, ALT 15, Alkaline Phosphatase 43 L, Lipase 239 Assessment and Plan - Problems (Diagnosis) (1) Hypoglycemia Current Visit: Yes Status: Acute Plan: Patient is 78 years of age was found to be hypoglycemic his fasting blood sugar was 45 currently he has had an episode before a month and a half ago this started all after his abdominal surgery patient has chronic renal insufficiency laboratory data unremarkable CT of the abdomen shows diverticulosis I have ordered C-peptide tsh level serum cortisol level possible discharge today will Dc IV fluids monitor check blood sugars advice to follow-up with and ordnance engineer - Advance Directives Does patient have a Living Will: No Does patient have a Durable POA for Healthcare: No
[2019-10-20 10:04] VITALS: O2SAT 97
--- NOTE | 2019-10-20 11:42 | RAD REPORT ---
EXAM DESCRIPTION: Ricky Single View10/20/2019 12:46 am CLINICAL HISTORY: Abdominal pain COMPARISON: 2018 FINDINGS: The lungs appear clear of acute infiltrate. The heart is mildly enlarged IMPRESSION: No acute abnormalities displayed
--- NOTE | 2019-10-20 12:30 | RAD REPORT ---
EXAM DESCRIPTION: CT - Abdomen Pelvis Wo Contrast - 10/20/2019 7:08 am CLINICAL HISTORY: The patient is 78 years old and is Male; Abd pain;Epigastric pain TECHNIQUE: Axial computed tomography images of the abdomen and pelvis without intravenous contrast. Sagittal and coronal reformatted images were created and reviewed. This CT exam was performed usi ng one or more of the following dose reduction techniques: automated exposure control, adjustment o f the mA and/or kV according to patient size, and/or use of iterative reconstruction technique. COMPARISON: CT of the abdomen and pelvis September 12, 2018. FINDINGS: LUNG BASES: Unremarkable. No mass. No consolidation. MEDIASTINUM: A small hiatal hernia is present. ABDOMEN: LIVER: Homogeneous without focal mass. GALLBLADDER AND BILE DUCTS: The gallbladder is contracted. PANCREAS: The pancreas is atrophic. No ductal dilation. SPLEEN: Unremarkable. ADRENALS: Unremarkable. No mass. KIDNEYS AND URETERS: Multiple bilateral renal cysts are present, the largest on the left measure s approximately 4.7 cm. No follow-up imaging is recommended. There is no hydronephrosis or hydrourete r of either kidney. STOMACH AND BOWEL: The stomach is distended with food contents. Oral contrast is noted throughou t majority the small bowel which is normal in caliber. Stool is present throughout the colon. No evid ence of bowel obstruction. No significant bowel wall thickening. Colonic diverticulosis is noted, wit hout associated inflammatory changes to suggest diverticulitis. PELVIS: APPENDIX: No findings to suggest acute appendicitis. BLADDER: Unremarkable. No stones. REPRODUCTIVE: Unremarkable as visualized. ABDOMEN and PELVIS: INTRAPERITONEAL SPACE: Unremarkable. No free air. No significant fluid collection. BONES/JOINTS: Multilevel degenerative change of the spine is present. SOFT TISSUES: Postsurgical change of the bilateral inguinal canals are present. VASCULATURE: Unremarkable. No abdominal aortic aneurysm. LYMPH NODES: Unremarkable. No enlarged lymph nodes. IMPRESSION: Colonic diverticulosis without evidence of diverticulitis. Electronically signed by: Melisa Lewis MD 10/20/2019 2:50 AM CDT Due to temporary technical issues with the PACS/Fluency reporting system, reports are being signed by the in house radiologist as a courtesy to ensure prompt reporting. The interpreting radiologist is f ully responsible for the content of the report.
[2019-10-20] MEDS ORDERED: PNEUMOCOCCAL VACCINE 0.5 ML IMVAC ONE (13:00)
[2019-10-20] MEDS ORDERED: LOSARTAN POTASSIUM 50 MG TABLET PO SCH (14:00)
[2019-10-20] MEDS ORDERED: LEVOTHYROXINE SOD 0.05 MG TABLET PO SCH (14:00)
--- NOTE | 2019-10-20 16:53 | P.DS ---
Admission Date: 10/20/19 Discharge Date: 10/20/19 Disposition: ROUTINE DISCHARGE Discharge Condition: GOOD Reason for Admission: Hypoglycemia - Problems (1) Hypoglycemia Current Visit: Yes Status: Acute Brief History of Present Illness: Patient is 78 years of age has symptoms of hypoglycemia MB dizziness diaphoresis wound in the sugars in the 40s denies any other complaints last episode of hypoglycemia was a month and a half ago seen by his primary care physician currently this happened after his hernia surgery he is feeling fine now daughter diabetic Hospital Course: Patient was admitted for observation he did well no new complaints home medications resumed C-peptide tsh level serum cortisol ordered patient's vital sign was all stable at the time of discharge Vital Signs/Physical Exam: Temp Pulse Resp BP Pulse Ox 97.4 F 60 20 159/83 H 98 10/20/19 12:00 10/20/19 12:00 10/20/19 12:00 10/20/19 12:00 10/20/19 12:00 Laboratory Data at Discharge: WBC 10.9 K/uL (4.3-10.9) 10/20/19 00:29 Hgb 12.5 g/dL (13.6-17.9) L 10/20/19 00:29 Hct 37.9 % (39.6-49.0) L 10/20/19 00:29 Plt Count 149 K/uL (152-406) L 10/20/19 00:29 PT 10.5 SECONDS (9.5-12.5) 10/20/19 00:29 INR 0.89 10/20/19 00:29 Sodium 144 mmol/L (136-145) 10/20/19 00:29 Potassium 3.9 mmol/L (3.5-5.1) 10/20/19 00:29 BUN 29 mg/dL (7-18) H 10/20/19 00:29 Creatinine 2.09 mg/dL (0.55-1.3) H 10/20/19 00:29 Glucose 117 mg/dL (74-106) H 10/20/19 00:29 Magnesium 2.3 mg/dL (1.8-2.4) 10/20/19 00:29 Total Bilirubin 0.2 mg/dL (0.2-1.0) 10/20/19 00:29 AST 13 U/L (15-37) L 10/20/19 00:29 ALT 15 U/L (12-78) 10/20/19 00:29 Alkaline Phosphatase 43 U/L (45-117) L 10/20/19 00:29 Lipase 239 U/L (73-393) 10/20/19 00:29 Home Medications: Aspirin [Aspirin EC 81 MG] 81 mg PO DAILY 09/29/16 Guanfacine HCl [Guanfacine HCl ER] 2 mg PO BEDTIME 09/29/16 Finasteride [Proscar*] 5 mg PO DAILY 09/25/18 Carvedilol [Coreg] 3.125 mg PO BID 10/20/19 Cholecalciferol (Vitamin D3) [Vitamin D3] 50 mcg PO DAILY 10/20/19 Hydralazine HCl 50 mg PO BID 10/20/19 Hydralazine HCl [Hydralazine HCl] 50 mg PO BID 10/20/19 Levothyroxine Sodium 50 mcg PO SEECOM 10/20/19 Losartan Potassium 0.5 tab PO DAILY 10/20/19 Patient Discharge Instructions: pt to resume all home meds. F/u with PCP this week. for lab results Diet: Regular Activity: Ad shirley
[2019-10-20 16:54] VITALS: BP 163/87; TEMP 97.5
[2019-10-20] MEDS ORDERED: HOME MED 1 EA UNK (Hydralazine Hcl [Hydralazine Hcl] 50 MG) PO SCH (21:00)
[2019-10-20] MEDS ORDERED: carvediloL 3.125 MG TAB PO SCH (21:00)
[2019-10-20] MEDS ORDERED: HYDRALAZINE HCL 25 MG TABLET PO SCH (21:00)
[2019-10-20] MEDS ORDERED: GUANFACINE HCL 2 MG PO SCH (21:00)
[2019-10-21] MEDS ORDERED: LOSARTAN POTASSIUM PO SCH (09:00)
[2019-10-21] MEDS ORDERED: ASPIRIN EC 81 MG TAB PO SCH (09:00)
[2019-10-21] MEDS ORDERED: FINASTERIDE 5 MG TAB PO SCH (09:00)
== END 2019-10-20 17:12 | disposition home or self-care (01) ==
LOC: ER 00:02 → SUPCPDRO 00:02 → 2ND 04:00
PROVIDERS: ADMIT Internal Medicine Sleep Medicine; ATTEND Internal Medicine Sleep Medicine
DX: E16.2 Hypoglycemia, unspecified (principal); I12.9 Hypertensive chronic kidney disease with stage 1 through stage 4 chronic kidney disease, or unspecified chronic kidney disease; N18.9 Chronic kidney disease, unspecified; K57.90 Diverticulosis of intestine, part unspecified, without perforation or abscess without bleeding; R00.1 Bradycardia, unspecified; Z23 Encounter for immunization; Z79.82 Long term (current) use of aspirin; Z88.0 Allergy status to penicillin; Z88.6 Allergy status to analgesic agent; Z82.49 Family history of ischemic heart disease and other diseases of the circulatory system; Z83.3 Family history of diabetes mellitus
CPT/HCPCS: 87088; 85025; 80048; 36415; 83735; 85610; 82947 ×4; 80076; 84443; 81003; 84484; 83690; 82533; 83880; 83525; 84681; 74176; 71045; 90471; 90670; 99285; G0378 ×2; 87086

== ENCOUNTER 2020-06-01 12:08 | Observation (INO) | payer OTHER ==
--- NOTE | 2020-05-29 15:27 | RAD REPORT ---
EXAM DESCRIPTION: RAD - Chest Pa And Lat (2 Views) - 05/29/2020 2:44 pm CLINICAL HISTORY: pre op, pending cardiac catheterization COMPARISON: Portable chest October 2019 TECHNIQUE: Frontal and lateral views of the chest were obtained. FINDINGS: The lungs are clear. Interstitial pattern matches comparison. Heart size is normal and ce ntral vasculature is within normal limits. No pleural effusion or pneumothorax seen. No acute bony finding noted. Mild aortic tortuosity noted without aneurysm. Rounded density lower right paraspinal region was seen previously and is probably summation of vasculature or part of patient's known hiata l hernia. IMPRESSION: No acute cardiopulmonary process. No suspicious change from comparison.
[2020-05-29 15:40] LABS: Basophils % 0.4 % (0-1.3); Hematocrit 37.8 % (39.6-49.0); Lymphocytes % 27.8 % (15.3-44.8); MPV 8.8 fL (7.6-11.3); RBC Red Blood Cell Count 4.12 M/uL (4.33-5.43)
[2020-05-29 15:47] LABS: Protime INR 0.88
[2020-05-29 16:02] LABS: Potassium 4.5 mmol/L (3.5-5.1)
--- OUTSIDE RECORDS SUMMARY | 2020-06-01 12:09 | XMS REPORT | Continuity of Care Document ---
:1940 Author Organization [facility] t Address [address] [place] [address] Care Team Providers Name Role Phone Unavailable Unavailable Unavailable Problems This patient has no known problems. Allergies, Adverse Reactions, Alerts Allergy Allergy Status Severity Reaction(s) Onset Inactive Treating Comm ents Source Name Type Date Date Clinician PCN Adverse Active Info Not [facility] Potassiu Adverse [facility] rash [facility] Lisinopr Adverse [facility] rash [facility] Medications Ordered Filled Start Stop Current Ordering Indication Dosage Frequency Signature Comments Components Source Medication Medication Date Date Medication? Clinician (SIG) Name Name Accu-Chek Accu-Chek Yes Na Liz USE TO [facility] Theodora Plus Theodora Plus CHECK Stefany kes - GLUCOSE [facility] Procedures This patient has no known procedures. Encounters Start End Encounter Admission Attending Care Care Encounter Source Date/Time Date/Time Type Type Clinicians Facility Department ID 2020-05-16 2020-05-16 [facility] [id number] [facility] 2020-04-17 2020-04-17 [facility] [id number] [facility] 2020-04-17 2020-04[facility]17 [id number] 2020-01-21 2020-01-21 [facility] [id number] [facility] 09[facility]:00 09:47:00 t TEAM INTERVAL [facility] 2019-11-26 2019-11-26 [facility] [id number] [facility] 08:20:00 08:20:00 t TEAM INTERVAL [facility] 2019-11-25 2019-11-25 [facility] [id number] [facility] 08:40:00 08:40:00 t TEAM INTERVAL [facility] 2019-10-28 2019-10-28 [facility] [id number] [facility] 15:58:00 15[facility]58:00 t TEAM INTERVAL [facility] 2019-09-23 2019-09-23 [facility] [id number] [facility] 11:40:00 11:40:00 t TEAM INTERVAL [facility] 2019-08-14 2019-08-14 [facility] [id number] [facility] 11:20:00 11:20:00 t TEAM INTERVAL [facility] Results This patient has no known results.
--- OUTSIDE RECORDS SUMMARY | 2020-06-01 12:10 | XMS REPORT ---
:1940 Author Organization [facility] Address [address] [place], [facility] [address] [place] [address] Care Team Providers Name Role Phone Liz Unavailable [phone] PROBLEMS Type Condition ICD9-CM [id number] Onset Condition SNOMED Code Notes Code Code Dates Status Problem Insect stings, T63.484A Active 589590849 undetermined intent, initial encounter Problem Elevated blood pressure I10 Active 05088520 reading in office with diagnosis of hypertension Problem CKD (chronic kidney N18.3 Active 784686031 disease), stage III Problem Hypothyroidism E03.9 Active 366076179 (acquired) Problem Allergic reaction, T78.40XA Active 496065218 initial encounter Problem Vitamin D deficiency E55.9 Active 43315805 Problem Multiple episodes of E16.2 Active 204612493 hypoglycemia Problem Essential tremor G25.0 Active 600616591 Problem Pure E78.00 Active 912333645 hypercholesterolemia Problem Polycystic kidney Q61.3 Active 815060471 disease ALLERGIES Allergen (clinical drug Drug/Non Drug Allergy Reaction Allergy Type Onset Date Status ingredient) documented on EMR lisinopril Lisinopril(ND rash Drug Allergy Active Code:[address]-39) PCN Unknown Drug Allergy Active Potassium(ND rash Drug Allergy Active Code:85554-33542) ENCOUNTERS from 1940 to 2020-05-19 Encounter Location Date Provider Diagnosis [address] [facility] [address] [place] [address] May, 2020 [place] [address] IMMUNIZATIONS Vaccine Route Administration Date Status Dexamethasone IM Intramuscular Mar 09, 2018 Administered SOCIAL HISTORY Tobacco Use: Social History Observation Description Date Details (start date - stop date) Never Smoker Sex Assigned At : Social History Observation Description Sex Assigned At Unknown Alcohol Screen Question Answer Notes Did you have a drink containing alcohol in the past year? No Points 0 Interpretation Negative Tobacco Use/Smoking Question Answer Notes Are you a never smoker REASON FOR REFERRAL No Information VITAL SIGNS No information MEDICATIONS Medication SIG (Take, Route, Frequency, Start Date End Date Status Duration) Levothyroxine Sodium 50 MCG 1 tablet in the morning on an Active empty stomach Orally Once a day for 90 days Guanfacine HCl Active Levothyroxine Sodium 50 MCG TAKE 1 TABLET BY MOUTH EVERY Active DAY IN THE MORNING ON EMPTY STOMACH for 90 Guanfacine HCl 2 MG TAKE 1 TABLET BY MOUTH Active EVERYDAY AT BEDTIME for 90 HydrALAZINE HCl 50 MG TAKE 1 TABLET BY MOUTH 3 TIMES Active A DAY WITH FOOD for 90 Finasteride 5 MG TAKE 1 TABLET BY MOUTH EVERY Active DAY for 90 days Carvedilol 3.125 MG as directed Orally twice a day Active Losartan Potassium 25 MG 1/2 tablet dailyfor Active hypertension Orally Once a day Aspir-81 81 MG 1 tablet Orally Once a day Active Guanfacine HCl 2 MG 1 tablet Orally Once a day in Active AM for 90 day(s) Accu-Chek Theodora Plus - USE TO CHECK GLUCOSE TWICE A Active DAY Sub Q BID for 90 days Guanfacine HCl 1 MG 1 tablet at bedtime Orally Active Once a day for 90 day(s) PROCEDURES No Information RESULTS No Results REASON FOR VISIT lab results MEDICAL (GENERAL) HISTORY Type Description Date Medical History HTN Medical History kidney problems Surgical History Hernia repair x2 Surgical History left knee Goals Section No Information Health Concerns No Information MEDICAL EQUIPMENT No Information MENTAL STATUS No Information FUNCTIONAL STATUS No Information ASSESSMENTS No Information PLAN OF TREATMENT Medication Medication Name Sig Start Date Stop Date Levothyroxine Sodium 50 MCG 1 tablet in the morning on an empty stomach Orally Once a day for 90 days Guanfacine HCl 2 MG 1 tablet Orally Once a day in AM for 90 day(s) Finasteride 5 MG TAKE 1 TABLET BY MOUTH EVERY DAY for 90 days Losartan Potassium 25 MG 1/2 tablet dailyfor hypertension Orally Once a day Guanfacine HCl 1 MG 1 tablet at bedtime Orally Once a day for 90 day(s) HydrALAZINE HCl 50 MG TAKE 1 TABLET BY MOUTH 3 TIMES A DAY WITH FOOD for 90 Carvedilol 3.125 MG as directed Orally twice a day Next Appt Details Provider Name:Leah Liz, 2020-07-17 01:0 0:00 PM, [address] [place], [address], [place], [address], Insurance Providers Payer Name Payer Address Payer Insured Patient Coverage Cover age Phone Name Relationship to Start Date End Date Insured MEDICARE Attn Part B [id number] Chad Marina self 2006 [facility] Claims [id number] [facility] [id number]
[2020-06-01] MEDS ORDERED: NA CHLORIDE 0.9% 500 ML ONE (15:28)
[2020-06-01] MEDS ORDERED: MIDAZOLAM HCL 2 MG/2 ML INJ ONE (18:05)
[2020-06-01] MEDS ORDERED: HEPARIN 5000 UNIT/ML 1 ML VIAL ONE (18:05)
[2020-06-01] MEDS ORDERED: HEPA 1000U/500MLS 2,000 UNIT/1,000 ML BAG IV ONE (18:05)
[2020-06-01] MEDS ORDERED: VERAPAMIL HCL 10 MG/4 ML VIAL IV ONE (18:06)
[2020-06-01] MEDS ORDERED: ATROPINE SULF 1 MG/10 ML SYR IV ONE (18:06)
[2020-06-01] MEDS ORDERED: FENTANYL CITR 100 MCG/2 ML ONE (18:06)
[2020-06-01] MEDS ORDERED: ACETAMINOPHEN 325 MG TABLET PO PRN (21:22)
[2020-06-01] MEDS ORDERED: NITROGLYCERIN 0.4 MG/TAB SL PRN (21:22)
[2020-06-01 21:48] VITALS: BMI 25.0
--- NOTE | 2020-06-01 22:21 | OP ---
Date of Procedure: 06/01/2020 Surgeon: REGGIE TOMAS Procedure Performed: Selective coronary angiogram. Indication: Abnormal stress test with chest pain. Access: Right radial artery 6-Tunisian closed with TR band. Complications: None. Bleeding: Less than 5 mL. Description Of Procedure: After risks, benefits, and alternatives were explained, the patient agreed to the procedure and signed informed consent. The patient was brought to the cardiac catheterizatio n laboratory, prepped and draped in usual sterile fashion, and then we used fentanyl and Versed in in cremental doses to achieve adequate moderate sedation. Then, we accessed the right radial artery usi ng pediatric micropuncture kit and placed a 6-Tunisian slender sheath. Then, took a 5-Tunisian [place] cat heter into the aortic root and engaged the left main and then right coronary artery, took standard vi ews and then took the catheter out and the wire and the sheath and the access site was closed with TR band with good hemostasis. Findings: 1.Left main is large and normal. 2.LAD, proximal portion is large and normal, but at the midportion, it is about 20 mm BUSINESS ADMINISTRATOR with O2 co llaterals filling the distal LAD, that retrograde fills back all the way to the midportion of the LAD . 3.Left circumflex is large with diffuse 20% to 30% stenosis. 4.RCA is large, dominant with severe 2 lesions in the PDA, proximal 90% and mid 90%, and with ANDRADE-3 flow. Impression: Severe two-vessel coronary artery disease. Recommendation: Consult CT Surgery for possible CABG. If not a candidate, PCI is possible. Plan to fix RCA first and attempt for LAD BUSINESS ADMINISTRATOR if the patient continues to be symptomatic. SR/MODL Voice ID: [id number] Report ID: [id number]
[2020-06-01 22:26] VITALS: O2SAT 97
[2020-06-01] MEDS: ACETYLCYST 20% 800 MG/4 ML VIAL PO SCH (22:36)
[2020-06-01] MEDS ORDERED: NA CHLORIDE 0.9% 1,000 ML IV SCH (23:00)
[2020-06-01 23:09] LABS: Potassium 3.6 mmol/L (3.5-5.1)
[2020-06-01] MEDS ORDERED: ACETYLCYST 6,000 MG/30 ML VIAL ONE (23:42)
[2020-06-02 04:16] LABS: Absolute Lymphocytes (CBC) 2.1 K/uL (0.7-4.9); Basophils % 0.7 % (0-1.3); Hematocrit 32.9 % (39.6-49.0); Lymphocytes % 40.3 % (15.3-44.8); MPV 8.3 fL (7.6-11.3); RBC Red Blood Cell Count 3.64 M/uL (4.33-5.43)
[2020-06-02 04:31] LABS: Potassium 4.1 mmol/L (3.5-5.1)
[2020-06-02] MEDS ORDERED: LEVOTHYROXINE SOD 0.05 MG TABLET PO SCH (06:30)
[2020-06-02] MEDS ORDERED: carvediloL 3.125 MG TAB PO SCH (08:00)
[2020-06-02] MEDS ORDERED: HYDRALAZINE HCL 25 MG TABLET PO SCH (09:00)
[2020-06-02] MEDS ORDERED: ASPIRIN 81 MG CHEWABLE TABLET PO SCH (09:00)
[2020-06-02] MEDS ORDERED: LOSARTAN POTASSIUM 50 MG TABLET PO SCH (09:00)
[2020-06-02] MEDS: ACETYLCYST 20% 800 MG/4 ML VIAL PO SCH (09:11)
[2020-06-02 11:37] VITALS: BP 130/82; TEMP 97
--- NOTE | 2020-06-02 11:58 | CON ---
Date of Consultation: 06/02/2020 Additional Consulting Physician: Matthieu Brian MD Reason For Consultation: Elevated BUN and creatinine, fluid management, plan for cardiac cath with advanced chronic kidney disease. History Of Present Illness: This is a 79-year-old gentleman, well known to me from the office with significant past medical history of hypertension, hyperlipidemia, coronary artery disease, hypothyroidism, secondary hyperparathyroidism, chronic kidney disease stage 3B/baseline creatinine 2 with GFR of 30 as by May 2020. The patient was admitted for elective cardiac cath after discussing with Cardiology and given the advanced kidney disease, we decided to be admitted and hydrate before and after. The patient had cardiac cath recommended for interventional cardiac cath in 2 weeks because of the stenosis finding. The patient's upon admission to the hospital creatinine was 2.6. After hydration after 24 hours, creatinine is 2 with GFR of 32. The patient denied taking non-steroidal. We held his losartan. The patient is feeling well. Past Medical History: 1. Coronary artery disease. 2. Hypertension. 3. Hyperlipidemia. 4. Hypothyroidism. 5. Chronic kidney disease, stage 3B secondary to hypertension, nephrosclerosis, cardiorenal. Baseline creatinine 2, GFR of 30. Allergies: TO LISINOPRIL, PENICILLIN, CODEINE. Home Medications: Include losartan, aspirin, finasteride, carvedilol, cholecalciferol, levothyroxine. Social History: Lives with family. Denied smoking. Denied drinking. Denied drug abuse. Family History: Positive for coronary artery disease and hypertension. Review of Systems: Head and Neck: No red eye. No ear pain. GI: No nausea. No vomiting. : No polyuria. No dysuria. No hematuria. Welt Sewer: Not applicable. Respiratory: No shortness of breath. Cardiovascular: No chest pain. Endocrine: No polydipsia. Skin: No rash. Neuro: No weakness. Musculoskeletal: No joint pain. Physical Examination: General: When I saw the patient, the patient is lying in bed, comfortable, not in any distress. Vital Signs: Blood pressure 138/87, pulse of 52, afebrile. Chest: Clear to auscultation. Heart: S1, S2. Systolic murmur. Abdomen: Soft, nontender. Extremities: No edema. Neuro: Alert and oriented x3. No focal. Laboratory Data: Sodium 142, potassium 4.1, bicarb 25, BUN 28, creatinine 2, GFR of 32, calcium of 8. H and H 11.6/32.9. Current Medications: The patient on include normal saline at 75 per hour, losartan, carvedilol, hydralazine 50 b.i.d., nitroglycerin, Tylenol, and Levothyroxine. Assessment And Plan: 1. Chronic kidney disease, stage 3B secondary to cardiorenal, hypertension, nephrosclerosis/polycystic kidney. I am going to discontinue IV fluid. The patient cleared from the renal standpoint for discharge planning and to be repeat chemistry in 2 days and in 2 weeks. Hold losartan for today and tomorrow, then resume it and we will monitor. The patient instructed about this instruction and will follow up. 2. Hypertension, controlled, optimal. Hold losartan given the exposure for contrast. 3. Coronary artery disease. Plan for angioplasty in 2 weeks. We will repeat chemistry in 2 weeks and depending on that, we will give the clearance. We will follow up with Cardiology. 4. Hypothyroidism. Continue current treatment. 5. Hypokalemia, corrected. Case discussed with the patient, verbalized understanding. Time spent discussing the case with the patient, [id number] interview, placing orders, discussed the case with other specialty, other sports team manager including hospitalist and Cardiology 65 minutes. time spent coordinating care discussing with the patient [id number] with the patient, placing order , discussing the case with the other team number + hospitalists and consultants 45 min EYAL Voice ID: [id number] Report ID: [id number] KATHERINE
[2020-06-02] MEDS ORDERED: FINASTERIDE 5 MG TAB PO SCH (21:00)
--- NOTE | 2020-06-03 03:02 | HP ---
Date of Admission: 06/01/2020 Reason For Admission: Acute renal failure and coronary artery disease and consultation by Dr. Lois patel. History Of Present Illness: Mr. Marina is a 79-year-old white male who had chest pain, abnormal str ess test. He has a history of hypertension, dyslipidemia, and hypothyroidism. He has chronic renal disease stage 3B secondary to hypertension, nephrosclerosis, and cardiorenal with a baseline creatini ne of 2 and a GFR of 30. He was admitted initially as an outpatient for elective heart catheterizati on. Case had been discussed with Dr. Manzanares who wanted the patient admitted for hydration before a nd after the catheterization as well as Mucomyst before and after the catheterization. His creatinin e on admission was 2.6. Past Medical History: As stated above. Allergies: LISINOPRIL, PENICILLIN, AND CODEINE. Review of Systems: Negative. Social History: Negative. Family History: Noncontributory. Medications: At home include losartan, aspirin, finasteride, carvedilol, and levothyroxine. Physical Examination: Vital Signs: Stable. He was afebrile. HEENT: Negative. Neck: Supple without any bruit, lymphadenopathy, JVD, or thyromegaly. Chest: Clear to auscultation and percussion. Cardiac: A regular rhythm and rate. No murmurs, gallops, or rubs. Abdomen: Benign. Extremities: No clubbing, cyanosis, or edema. Diagnostic Data: Sodium was 142, his potassium 4.1, GFR of 32, creatinine is 2, calcium of 8, hemogl obin was 11.9. His EKG showed nonspecific changes. Chest x-ray is negative. Impression And Plan: Patient with unstable angina, chest pain, abnormal stress test, history of hype rtension, dyslipidemia, hypothyroidism, chronic renal disease. Creatinine is 2.6 as an outpatient. The patient underwent a heart catheterization today revealing significant coronary artery disease. Pl ans are being still discussed. He will be admitted for hydration, Mucomyst, nephrology consultation. He will be going home in 1 day. JESS/DELVIN Voice ID: [id number]
--- NOTE | 2020-06-03 03:14 | DS ---
Date of Discharge: 06/02/2020 Admission Diagnoses: Renal failure and unstable angina. Discharge Diagnoses: Renal failure, unstable angina, coronary artery disease, hypertension, dyslipid emia, and hypothyroidism. Discharge Medications: Include losartan, aspirin, finasteride, carvedilol, Synthroid, Lipitor 40 mg daily. Discharge Instructions: For him to be set up for angioplasty and stent of his posterior descending a rtery to resume normal activities, to have a low-fat, low-cholesterol diet, and to follow up with Dr. Manzanares in the next week or two. Procedures While He Was In The Hospital: Include left heart catheterization performed by Dr. Brian. Hospital Course: Mr. 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 Heart catheterization revealed totally occluded LAD with collaterals from the circumflex and the septal to the distal LAD. His RCA itself was normal. He had 2 stenosis in the PDA about 80% to 90% at the proximal PDA and distal PDA. The patient tolerated the procedure well without any complic ation. His creatinine was 2.6 before the procedure. He was hydrated before and after. He was given Mucomyst before and after. His last creatinine was 2.0. Dr. Manzanares saw the patient and he will f ollow up with him. Recommendation was to hold losartan for 2 days. His hypertension and hypothyroid ism were stable. He had hypokalemia that was corrected. Plan is to repeat chemistry in 2 weeks. We will set up the patient for intervention of his PDA in the next 2 weeks or so. JESS/DELVIN Voice ID: [id number] Report ID: [id number]
== END 2020-06-02 12:41 | disposition home or self-care (01) ==
LOC: CCL 12:08 → 2ND 19:23 → UNDOADMOB 19:31 → 2ND 19:31
PROVIDERS: ATTEND Internal Medicine
DX: I25.110 Atherosclerotic heart disease of native coronary artery with unstable angina pectoris (principal); E03.9 Hypothyroidism, unspecified; I12.9 Hypertensive chronic kidney disease with stage 1 through stage 4 chronic kidney disease, or unspecified chronic kidney disease; N18.32 Chronic kidney disease, stage 3b; N17.9 Acute kidney failure, unspecified; Z20.828 Contact with and (suspected) exposure to other viral communicable diseases; E87.6 Hypokalemia; E78.5 Hyperlipidemia, unspecified; E78.2 Mixed hyperlipidemia
CPT/HCPCS: 85025 ×2; 80048 ×3; 36415 ×2; 85610; 82947; 85730; 71046; 93454; U0002; C1893; J1644 ×2; J2250; J3010; J7040; J7030; G0378 ×3

== ENCOUNTER 2020-06-22 07:04 | Day surgery (SDC) | payer OTHER ==
[2020-06-19 12:34] LABS: Absolute Lymphocytes (CBC) 1.9 K/uL (0.7-4.9); Basophils % 0.4 % (0-1.3); Hematocrit 39.8 % (39.6-49.0); Lymphocytes % 28.2 % (15.3-44.8); MPV 8.5 fL (7.6-11.3); RBC Red Blood Cell Count 4.35 M/uL (4.33-5.43)
[2020-06-19 13:02] LABS: Protime INR 0.93
--- OUTSIDE RECORDS SUMMARY | 2020-06-22 07:07 | XMS REPORT | Continuity of Care Document ---
:1940 Author Organization [facility] t Address [address] [place] [address] Care Team Providers Name Role Phone Unavailable [...] [facility] Lisinopr Adverse Active rash [facility] Medications Ordered Filled Start Stop Current Ordering Indication Dosage Frequency Signature Comments Components Source Medication Medication Date Date Medication? Clinician (SIG) Name Name Accu-Chek Accu-Chek Yes Na Liz USE TO [facility] Theodora Plus Theodora Plus CHECK Stefany kes - GLUCOSE [facility] TWICE A l DAY [facility] Procedures This patient has no known procedures. Encounters Start End Encounter Admission Attending Care Care Encounter Source Date/Time Date/Time Type Type Clinicians Facility Department ID 2020-05-16 2020-05-16 Out[facility] [id number] [facility] 2020-04-17 2020-04-17 [facility] [id number] [facility] 2020-04-17 2020-04-17 [facility] [id number] [facility] 2020-01-21 2020-01-21 [facility] [id number] [facility] 09[facility]00 09:47:00 t [facility] 2019-11-26 2019-11-26 [facility] [id number] [facility] 08:20[facility]00 08:20:00 t [facility]5 [facility] 2019-11-25 2019-11-25 [facility] [id number] [facility] 08:40:00 08:40:00 t [facility]5 [facility] 2019-10-28 2019-10-28 [facility] [id number] [address] 15:58:00 15:58:00 t Stream5 [facility] 2019-09-23 2019-09-23 [facility] [id number] [address] 11[facility]40:00 11:40:00 t Stream5 [facility] 2019-08-14 2019-08-14 [facility] [id number] [address] 11:20:00 11:20:00 t Stream5 [facility] Results This patient has no known results.
[2020-06-22] MEDS ORDERED: HEPA 1000U/500MLS 2,000 UNIT/1,000 ML BAG IV ONE (07:26)
[2020-06-22] MEDS ORDERED: LIDOCAINE 1% MPF 30 ML VIAL ONE (07:26)
[2020-06-22] MEDS ORDERED: VERAPAMIL HCL 10 MG/4 ML VIAL IV ONE (08:58)
[2020-06-22] MEDS ORDERED: HEPARIN 5000 UNIT/ML 1 ML VIAL ONE (08:59)
[2020-06-22] MEDS ORDERED: HEPARIN 10,000 UNIT/10 ML VIAL IV ONE (08:59)
[2020-06-22] MEDS ORDERED: ATROPINE SULF 1 MG/10 ML SYR IV ONE (08:59)
[2020-06-22] MEDS ORDERED: NA CHLORIDE 0.9% 500 ML ONE (09:16)
[2020-06-22] MEDS ORDERED: MIDAZOLAM HCL 2 MG/2 ML INJ ONE (10:08)
[2020-06-22] MEDS ORDERED: FENTANYL CITR 100 MCG/2 ML ONE (10:08)
[2020-06-22] MEDS ORDERED: TICAGRELOR 90 MG TABLET PO ONE (10:18)
--- NOTE | 2020-06-22 11:08 | OP ---
Date of Procedure: 06/22/2020 Surgeon: REGGIE TOMAS Procedure Performed: Percutaneous coronary intervention of severe proximal and mid right posterior d escending artery stenosis using a 2.5 x 24 mm Synergy drug-eluting stent, post dilated to the proxima l portion using 2.75 x 12 mm NC balloon. Indication: Unstable angina with known significant PDA disease. Access: Right radial artery 6-Zimbabwean closed with TR band. Complications: None. Bleeding: Less than 10 mL. Total Amount Of Contrast Used: 31 cc. Total Sedation Time: 25 minutes. Description Of Procedure: After risks, benefits, and alternatives were explained, the patient agreed to procedure and signed informed consent. The patient was brought into cardiac catheterization [facility] [place], prepped and draped in usual sterile fashion. He was loaded with 180 mg of Brilinta and took his aspirin this morning, and then we accessed. We used fentanyl and Versed in incremental doses to achieve adequate moderate sedation. Then, we accessed the right radial artery using pediatric microp uncture kit, placed a 6-Zimbabwean slender sheath, and took a 6-Zimbabwean JR4 guide into the aortic root ove r a J-wire, engaged the right coronary artery and then used a short run-through wire to go across the stenosis of the PDA and then we took a 2.5 x 50 mm Compliant balloon and pre-dilated the lesion and then took 2.5 x 24 mm Synergy drug-eluting stent across the both stenotic area and the stent was depl oyed successfully, and then we took a 2.75 x 12 mm NC balloon, postdilated the proximal stent to a pr essure of 15 atmospheres. Post stent deployment images showed excellent apposition and no complicati ons. The patient was given systemic heparin throughout the procedure and ACT level was above 250. T hen, we took the guide out, sheath was removed, placed TR band with good hemostasis. Impression: Successful percutaneous coronary intervention of proximal and mid right posterior descen ding artery using a 2.5 x 24 mm Synergy drug-eluting stent, post dilated using 2.75 x 12 mm NC balloo n. Plan: 1.Continue Brilinta 90 mg q.12 hours, aspirin 81 mg daily, and start Lipitor 40 mg at bedtime. 2.Discharge home once criteria are met and follow up with Dr. Perales in 4 weeks. SR/MODL Voice ID: [id number] Report ID: [id number]
[2020-06-22 13:19] VITALS: TEMP 97.2
[2020-06-22 15:39] VITALS: BP 148/80; O2SAT 97
== END 2020-06-22 15:32 | disposition home or self-care (01) ==
LOC: CCL 07:04
PROVIDERS: ATTEND Internal Medicine
DX: I25.110 Atherosclerotic heart disease of native coronary artery with unstable angina pectoris (principal); I12.9 Hypertensive chronic kidney disease with stage 1 through stage 4 chronic kidney disease, or unspecified chronic kidney disease; N18.30 Chronic kidney disease, stage 3 unspecified; E78.2 Mixed hyperlipidemia; Q61.3 Polycystic kidney, unspecified; E03.9 Hypothyroidism, unspecified; N40.0 Benign prostatic hyperplasia without lower urinary tract symptoms; Z20.828 Contact with and (suspected) exposure to other viral communicable diseases
CPT/HCPCS: 93005; 85025; 36415; 85610; 82947; 85347; 85730; 93454; U0002; C1893; C1725; C9600; J1644 ×2; J2250; J3010; J7040